=== PATIENT | male | born 1975 | race Caucasian/White ===

== ENCOUNTER → 2019-03-18 15:59 | Outpatient (CLI) | payer OTHER, SELFPAY ==
--- NOTE | 2019-03-18 | DI.MRI.S_ITS ---
PROCEDURE: MR LUMBAR SPINE WO CON INDICATIONS: Lumbago with sciatica, right side TECHNIQUE: Noncontrast sagittal T1 spin echo and T2 fast echo, sagittal STIR, axial T1 and T2 fast spin echo through the lumbar spine. In cases with scoliosis, additional coronal T2 fast spin echo may be performed. COMPARISON: None. FINDINGS: Image quality: Excellent. Alignment and Curvature: There is normal bony alignment. Bone Marrow: Reactive endplate change is noted adjacent to the L4-L5 disc. No acute vertebral body compression fractures. Spinal Cord: Conus medullaris terminates at the L1 level. Visualized cord demonstrates normal signal and size. Paraspinous Soft Tissues: No paravertebral masses. L1-L2: Normal appearance. L2-L3: Normal appearance. L3-L4: Loss of the signal. Moderate, diffuse disc bulge. Severe narrowing of the central canal with slight compression of the traversing nerve roots the cauda equina. Mild to moderate bilateral neural foraminal narrowing. Fissure noted in the posterior annulus. L4-L5: Loss of disc signal and height. Mild, diffuse disc bulge. Large central disc protrusion. Mild bilateral facet hypertrophy. Severe narrowing of the central canal with marked compression of the traversing nerve roots of the cauda equina. Moderate bilateral neural foraminal narrowing. L5-S1: Slight loss of disc signal. Minimal, diffuse disc bulge and mild bilateral facet hypertrophy. No central stenosis. No neural foraminal narrowing. No neural compression. IMPRESSION: 1. Multilevel degenerative disc disease. 2. Multilevel facet arthropathy. 3. Severe L3-L4 and L4-L5 central canal narrowing. 4. Moderate bilateral L4-L5 neural foraminal narrowing. Mild to moderate bilateral L3-L4 neural foraminal narrowing. 5. Severe compression of the nerve roots of cauda equina at level of the L4-L5 disc and slight compression of the nerve roots of cauda equina at the level of the L3-L4 disc. Please correlate with clinical findings. 6. L3-L4 disc annulus fissure. Dictated by: Caterina Hollingsworth MD, PhD on 03/19/2019 at 8:59 Approved by: Caterina Hollingsworth MD, PhD on 03/19/2019 at 9:06
== END ==
PROVIDERS: PCP Family Medicine Geriatric Medicine; Visit Provider Nurse Practitioner Family
DX: M51.16 Intervertebral disc disorders with radiculopathy, lumbar region (principal); M47.26 Other spondylosis with radiculopathy, lumbar region; M48.061 Spinal stenosis, lumbar region without neurogenic claudication; G89.29 Other chronic pain
CPT/HCPCS: 72148